=== PATIENT | female | born 1955 | race Caucasian/White ===

== ENCOUNTER → 2023-12-06 08:46 | Outpatient (REF) | payer BC, SELFPAY | LOC: HWRAD 08:46 | PROVIDERS: ATTENDING PHYSICIAN Internal Medicine Endocrinology, Diabetes & Metabolism; FAMILY PHYSICIAN Family Medicine | DX: E04.2 Nontoxic multinodular goiter (principal); Z86.39 Personal history of other endocrine, nutritional and metabolic disease; M85.80 Other specified disorders of bone density and structure, unspecified site | CPT/HCPCS: 76536; 77080 ==

== ENCOUNTER → 2023-12-27 07:38 | Outpatient (REF) | payer BC, SELFPAY ==
[2023-12-27 09:38] LABS: % Basophils 1.1 % (0-2); % Immature Granulocytes 0.1 % (0-0.5); % Lymphocytes 16.8 % (20.5-51.1); % Monocytes 6.6 % (1.7-9.3); % Neutrophils 72.4 % (42.2-75.2); Absolute Basophils 0.1 10^3/uL (0-0.2); Absolute Eosinophils 0.2 10^3/uL (0-0.7); Absolute Lymphocytes 1.3 10^3/uL (1.2-3.4); Absolute Monocytes 0.5 10^3/uL (0.1-0.6); Absolute Neutrophils 5.4 10^3/uL (1.4-6.5); Hematocrit 38.8 % (37.0-47.0); Hemoglobin 13.4 g/dL (12.0-16.0); Mean Corp Hgb Conc. 34.5 g/dL (33.0-37.0); Mean Corpuscular Hgb 27.7 pg (27.0-31.0); Mean Corpuscular Volume 80.3 fL (81.0-99.0); Mean Platelet Volume 9.8 fL (7.4-10.4); Nucleated Red Blood Cells % 0 %; Platelet Count 298 10^3/uL (130-400); Red Blood Cell Count 4.83 10^6/uL (4.20-5.40); Red Cell Dist. Width 13.8 % (11.5-14.5); White Blood Cell Count 7.4 10^3/uL (4.8-10.8)
[2023-12-27 09:44] LABS: ALT (SGPT) 22 U/L (0-35); AST (SGOT) 30 U/L (14-36); Albumin 4.1 g/dl (3.5-5.0); Alkaline Phosphatase 73 U/L (38-126); Blood Urea Nitrogen 10 mg/dl (7-17); Calcium 9.2 mg/dl (8.4-10.2); Carbon Dioxide 26 mmol/L (22-30); Chloride 107 mmol/L (98-107); Glucose 113 mg/dl (70-99); HDL Cholesterol 106 mg/dl; LDL Cholesterol, Calculated 104 mg/dl; Potassium 4.3 mmol/L (3.5-5.1); Sodium 138 mmol/L (135-145); Total Bilirubin 0.8 mg/dl (0.2-1.3); Total Cholesterol 223 mg/dl (50-199); Total Protein 6.5 g/dl (6.3-8.2); Triglyceride 65 mg/dl (10-149); Very Low Density Lipoprotein 13 mg/dl (0-30); eGFR > 60.00
== END ==
LOC: HWLAB 07:38
PROVIDERS: ATTENDING PHYSICIAN Family Medicine
DX: E78.00 Pure hypercholesterolemia, unspecified (principal)
CPT/HCPCS: 36415; 80053; 80061; 85025

== ENCOUNTER → 2024-05-17 12:17 | Outpatient (REF) | payer BC, SELFPAY ==
[2024-05-17 16:24] LABS: ALT (SGPT) 26 U/L (0-35); AST (SGOT) 31 U/L (14-36); Albumin 4.2 g/dl (3.5-5.0); Alkaline Phosphatase 82 U/L (38-126); Blood Urea Nitrogen 14 mg/dl (7-17); Calcium 9.5 mg/dl (8.4-10.2); Carbon Dioxide 26 mmol/L (22-30); Chloride 103 mmol/L (98-107); Glucose 100 mg/dl (70-99); Potassium 4.2 mmol/L (3.5-5.1); Sodium 140 mmol/L (135-145); Total Bilirubin 0.6 mg/dl (0.2-1.3); Total Protein 6.8 g/dl (6.3-8.2); eGFR > 60.00
[2024-05-17 16:29] LABS: Free T4 1.14 ng/dl (0.78-2.19); Vitamin D, 25-OH*** 32.7 ng/mL (30-80)
[2024-05-17 16:42] LABS: TSH 0.94 uIU/ml (0.47-4.68)
== END ==
LOC: HWLAB 12:17
PROVIDERS: ATTENDING PHYSICIAN Nurse Practitioner Family; FAMILY PHYSICIAN Family Medicine
DX: E04.1 Nontoxic single thyroid nodule (principal); E55.9 Vitamin D deficiency, unspecified; R82.994 Hypercalciuria; E21.3 Hyperparathyroidism, unspecified
CPT/HCPCS: 36415; 80053; 82306; 83970; 84439; 84443

== ENCOUNTER → 2024-06-12 10:01 | Outpatient (REF) | payer BC, SELFPAY ==
[2024-06-12 13:44] LABS: Urine Calcium 9.1 mg/dl
[2024-06-12 13:45] LABS: 24 Hour Urine Calcium 191.1 mg/day; 24 Hour Urine Creatinine 0.884 gm/day (0.8-1.8); 24 Hour Urine Total Volume 2100 ml
== END ==
LOC: HWLAB 10:01
PROVIDERS: ATTENDING PHYSICIAN Internal Medicine Endocrinology, Diabetes & Metabolism; FAMILY PHYSICIAN Family Medicine
DX: R82.994 Hypercalciuria (principal)
CPT/HCPCS: 36415; 81050; 82340; 82570

== ENCOUNTER → 2024-11-20 09:43 | Outpatient (REF) | payer BC, SELFPAY ==
[2024-11-20 12:43] LABS: ALT (SGPT) 21 U/L (0-35); AST (SGOT) 26 U/L (14-36); Albumin 4.4 g/dl (3.5-5.0); Alkaline Phosphatase 65 U/L (38-126); Blood Urea Nitrogen 14 mg/dl (7-17); Calcium 9.1 mg/dl (8.4-10.2); Carbon Dioxide 30 mmol/L (22-30); Chloride 108 mmol/L (98-107); Glucose 104 mg/dl (70-99); Potassium 4.4 mmol/L (3.5-5.1); Sodium 142 mmol/L (135-145); Total Bilirubin 0.9 mg/dl (0.2-1.3); Total Protein 6.6 g/dl (6.3-8.2); eGFR > 60.00
== END ==
LOC: HWRAD 09:43
PROVIDERS: ATTENDING PHYSICIAN Internal Medicine Endocrinology, Diabetes & Metabolism; FAMILY PHYSICIAN Family Medicine
DX: E04.1 Nontoxic single thyroid nodule (principal); R82.994 Hypercalciuria
CPT/HCPCS: 36415; 76536; 80053